=== PATIENT | female | born 1975 ===

== ENCOUNTER 2019-05-25 09:18 | Emergency (ER) | payer OTHER ==
[2019-05-25 09:38] VITALS: BP 129/88
--- NOTE | 2019-05-25 09:43 | UC ---
Throat Pain/Nasal Bulmaro HPI - HPI Summary HPI Summary: 44 yo female presents with neck pain. 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 She tells me that in early March her father, in [place], and pt was returning home to the [place] on multiple flights. Noticed left neck pain when she landed. Proceeded to get on multiple trains and buses to return home. States did not sleep for 2 days due to travel. Neck pain persisted and was worse with movement. This resolved with rest over the course of a few days. Later March her discomfort returned and she took Latvian herbs and symptoms resolved within a few days. Over the last 2-3 days her pain has returned and she has taken Latvian herbs again and states her pain has nearly resolved. Pain is worse with turning head to the right, neck extension, or with lifting arms above head. She denies headache, dizziness, SOB, chest pain, numbness, tingling, or radiating pain. She was telling her family about her neck and one of her family members commented that pt's anterior neck looked "swollen" and made her concerned about thyroid. She has had no weight loss/gain, hair thinning or loss, night sweats, numbness, tingling, or feeling cold. 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 Onset/Duration: Gradual Onset Severity: Mild Pain Intensity: 4 Pain Scale Used: 0-10 Numeric - Allergies/Home Medications Allergies/Adverse Reactions: Allergies Allergy/AdvReac Type Severity Reaction Status Date / Time No Known Allergies Allergy Verified 05/25/19 09:38 Home Medications: Home Medications NK [No Home Medications Reported] 05/25/19 [History Confirmed 05/25/19] PMH/Surg Hx/FS Hx/Imm Hx - Additional Past Medical History Additional PMH: None - Surgical History Surgical History: None - Family History Known Family History: Positive: None - Social History Lives: With Family Alcohol Use: None Substance Use Type: None Smoking Status (MU): Never Smoked Tobacco Review of Systems All Other Systems Reviewed And Are Negative: No Constitutional: Positive: Negative Skin: Positive: Negative Eyes: Positive: Negative ENT: Positive: Negative Respiratory: Positive: Negative Cardiovascular: Positive: Negative Gastrointestinal: Positive: Negative Genitourinary: Positive: Negative Motor: Positive: Negative Neurovascular: Positive: Negative Musculoskeletal: Positive: Other: - Neck pain Neurological: Positive: Negative Psychological: Positive: Negative Physical Exam - Summary Physical Exam Summary: GENERAL: NAD. WDWN. No pain distress. SKIN: No rashes, sores, or open wounds. HEENT: Head: AT/NC Eyes: PERRLA. EOM intact. Conjunctiva clear without inflammation or discharge. Ears: Hearing grossly normal. TMs intact, no bulging, erythema, or edema. Throat: Posterior oropharynx without exudates, erythema, or tonsillar enlargement. Uvula midline. NECK: Supple. Pain at left SCM with extension and turning head to the right. Mild TTP about SCM. No JCD or carotid bruit. Negative spurlings. No vertebral tenderness. ANTERIOR NECK: Mild boggy and questionable enlargement of thyroid. CHEST: CTAB. No r/r/w. No accessory muscle use. Breathing comfortably and in no distress. CV: RRR. Pulses intact. Brisk cap refill. MSK: FROM and 5/5 strength throughout. No edema. NEURO: Alert. PSYCH: Age appropriate behavior. Triage Information Reviewed: Yes Vital Signs: Initial Vital Signs Temp 98 F 05/25/19 09:31 Pulse 76 05/25/19 09:31 Resp 16 05/25/19 09:31 BP 129/88 05/25/19 09:31 Pulse Ox 100 05/25/19 09:31 Vital Signs Reviewed: Yes Throat Pain/Nasal Course/Dx - Course Course Of Treatment: Suspect strain/spasm of SCM or lateral neck musculature. Recommended PT and trying ibuprofen 600mg q6h prn pain. She did not want to do PT at this time and prefers to f/u in [place]. Will draw for TSH today - Differential Dx/Diagnosis Provider Diagnosis: Neck strain, Swelling of thyroid gland Discharge ED - Sign-Out/Discharge Documenting (check all that apply): Patient Departure All imaging exams completed and their final reports reviewed: No Studies - Discharge Plan Condition: Stable Disposition: HOME Patient Education Materials: Cervical Strain (ED) Referrals: [facility] [place] [facility] [Outside] - As Soon As Possible No Primary Care Phys,NOPCP [Primary Care Provider] - Additional Instructions: If you develop a fever, shortness of breath, chest pain, new or worsening symptoms - please call your PCP or go to the ED immediately. The pain in your neck seems to be due to a muscle. I recommend that you try taking ibuprofen 600mg every 6 hours if needed for pain - Billing Disposition and Condition Condition: STABLE Disposition: Home - Attestation Statements Provider Attestation: This patient was not seen by me. I was available for consult. Chart reviewed. EVIE
== END 2019-05-25 10:20 | disposition home or self-care (01) ==
LOC: UCEAST 09:18
DX: S16.1XXA Strain of muscle, fascia and tendon at neck level, initial encounter (principal); R59.0 Localized enlarged lymph nodes; X58.XXXA Exposure to other specified factors, initial encounter; Y92.9 Unspecified place or not applicable
CPT/HCPCS: 36415; 84443; 99201; G0463